=== PATIENT | male | born 1945 | race Caucasian/White ===

== ENCOUNTER 2016-09-25 11:05 | Observation (INO) ==
[2016-09-25] MEDS ORDERED: Aspirin 81 MG TAB.CHEW PO ONE (11:26)
--- NOTE | 2016-09-25 11:28 | Emergency Department Note ---
Disposition Clinical Impression: Chest pain Qualifiers: Chest pain type: unspecified Qualified Code(s): R07.9 - Chest pain, unspecified Disposition: Admitted As Inpatient Condition: Fair Referrals: NO,PCP [Non-Partnered Physician] - Forms: ED Satisfaction Letter Time of Disposition: 15:21 Chest Pain HPI - General Chief Complaint: ED Chest Pain Stated Complaint: chest pain Time Seen by Provider: 09/25/16 11:13 Source: patient, family Limitations: no limitations Vital Signs Reviewed: Yes Nursing Notes Reviewed: Yes - History of Present Illness HPI Narrative: 71-year-old male complaining of exertional chest pain 2 hours prior to arrival, history of CAD, CHF not compliant on lasix, nillotinib therapy with Dr. Scott, patient was actually on his way in to the cancer center today, he walked from the parking lot to the cancer center and got extreme shortness of breath associated with chest pain, he describes pain as 6 out of 10 substernal, radiating to left arm, causing numbness in his left arm. 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 Patient denies history of DVT or pulmonary embolus. Patient denies hemoptysis, fever chills weight loss or productive cough Pt complaint: chest pain Onset (ago): hour(s) (2) Duration: intermittent Onset: during exertion Pain Location: left chest Severity: mild Severity scale (1-10): 5 Quality: tightness, heaviness Pain Radiation: LUE Improves with: nothing Worsens with: nothing Context: other (Hx of CML) Associated symptoms: Reports: dyspnea Treatments prior to arrival chest pain: none - Related Data Home Medications Medication Instructions Recorded Confirmed Aspirin Enteric Coated [Aspirin EC] 81 mg PO DAILY 03/26/15 09/25/16 Cholecalciferol (Vitamin D3) 2,000 unit PO DAILY 03/26/15 09/25/16 [Vitamin D3] Furosemide 40 mg PO DAILY 03/26/15 09/25/16 GlipiZIDE [Glipizide] 10 mg PO DAILY 03/26/15 09/25/16 Lisinopril 20 mg PO DAILY 03/26/15 09/25/16 Metformin [Glucophage] 1,000 mg PO BID 03/26/15 09/25/16 Tramadol HCl 50 mg PO Q6HR PRN 03/26/15 09/25/16 Triamcinolone Acet 0.1% CRM 1 appl TP BID PRN 03/26/15 09/25/16 [Kenalog] Isosorbide MONOnitrate (24 HR) 30 mg PO DAILY 04/23/15 09/25/16 [Imdur] Oxygen 3 ml .ROUTE AD 11/10/15 09/25/16 Nitroglycerin [Nitrostat] 0.4 mg SL AD 09/25/16 09/25/16 Previous Rx's Medication Instructions Recorded Nilotinib HCl [Tasigna] 1 cap PO BID #60 capsule 09/12/16 Allergies Allergy/AdvReac Type Severity Reaction Status Date / Time codeine AdvReac Nausea Verified 09/25/16 11:09 morphine AdvReac Nausea Verified 09/25/16 11:09 All systems ED: reviewed and negative except as stated. Constitutional: Denies: fever, chills Cardiovascular: Reports: as per HPI, chest pain, dyspnea on exertion. Denies: palpitations Respiratory: Denies: cough, dyspnea Gastrointestinal: Denies: abdominal pain, nausea Genitourinary: Denies: urgency, dysuria Musculoskeletal: Denies: back pain, neck pain Integumentary: Denies: rash Neurological: Denies: headache, weakness Psychiatric: Denies: anxiety Endocrine: Denies: fatigue Chest Pain PMH - Past Medical History Medical history: Reports: cancer, cirrhosis, CHF, COPD, coronary artery disease , diabetes, hyperlipidemia, hypertension, myocardial infarction, other Surgical history: Reports: appendectomy, orthopedic, other Psychiatric history: Reports: no psych history - Social History Smoking Status: Former smoker Alcohol use: Reports: none Drug use: Reports: none Physical Exam Constitutional: Elderly male in no acute distress, tachycardic and hypoxic HEENT: NCAT, sclera anicteric, PERRLA bilaterally, normal external ears bilaterally, nasal septum nondeviated, average dentition, MMM Neck: normal inspection, neck is supple, trachea midline Resp: Bilateral bibasilar rales CV: RRR, no m/g/r, +3 bilateral pitting edema. GI: normal inspection, Soft, NTND, BS present Back: normal inspection, no tenderness to palpation Neuro: A&O3, no gross motor or sensory deficits bilaterally Skin: No rashes, skin warm, dry, intact - General Limitations: no limitations General appearance: alert, in no apparent distress Course Course Narrative: 71-year-old male with chest pain exertion walking to parking lot chronically oxygen dependent, chest pain worse with exertion, multiple comorbidities including CHF, COPD, oxygen dependence, likely admission for chest pain workup. - Reevaluation(s) Reevaluation #1: Troponin negative, EKG unremarkable, given hypoxia, tachycardia, CT of chest ordered Reevaluation #2: CT negative for pulmonary embolus, after long discussion with the patient will admit for chest pain workup [facility] accepting. Time: 15:21 Vital Signs Temperature 97.6 F 09/25/16 11:10 Pulse Rate 97 09/25/16 11:10 Respiratory Rate 18 09/25/16 11:10 Blood Pressure 159/70 09/25/16 11:10 O2 Sat by Pulse Oximetry 96 09/25/16 11:10 Temperature 97.6 F 09/25/16 11:10 Pulse Rate 110 09/25/16 15:02 Respiratory Rate 15 09/25/16 15:12 Blood Pressure 126/62 09/25/16 15:12 O2 Sat by Pulse Oximetry 95 09/25/16 15:02 Oxygen Delivery Oxygen Delivery Nasal Cannula Chest Pain - Differential Diagnosis Likely: atypical chest pain - Medical Records Medical records reviewed: Yes I reviewed the patient's medical records. - Lab Data Lab results reviewed: Yes I reviewed the patient's lab results. Result diagrams: 09/25/16 11:34 09/25/16 11:34 Lab Results 09/25/16 09/25/16 09/25/16 Range/Units 11:34 11:34 11:34 WBC 9.4 (4.3-11.1) K/mcL RBC 4.60 (4.19-5.50) M/mcL Hgb 14.2 (12.9-16.9) g/dL Hct 42.2 (37.5-50.1) % MCV 91.7 (83.0-100.0) fL MCH 30.9 (28.0-33.3) pg MCHC 33.6 (31.6-35.5) g/dL RDW 13.9 (11.5-14.5) % Plt Count 157 (140-400) K/mcL MPV 10.3 (9.4-12.4) fL Immature Gran % 0.2 (0-4) % Seg Neutrophils % 68.1 % Lymphocytes % 14.0 % Monocytes % 14.7 % Eosinophils % 2.6 % Basophils % 0.4 % Neutrophils # 6.4 (1.6-8.9) K/mcL Lymphocytes # 1.3 (0.6-4.6) K/mcL Monocytes # 1.4 H (0.0-1.3) K/mcL Eosinophils # 0.2 (0.0-0.6) K/mcL Basophils # 0.0 (0.0-0.2) K/mcL Immature Plt Fraction 5.1 (1.1-6.1) % PT 13.0 H (9.4-12.1) Seconds INR 1.2 APTT 33.6 (26.0-36.0) Seconds Sodium (136-145) mEq/L Potassium (3.5-4.5) mEq/L Chloride (98-109) mEq/L Carbon Dioxide (19-29) mEq/L BUN (8-26) mg/dL Creatinine (0.72-1.25) mg/dL Est GFR ( Amer) (> 60) Est GFR (Non-Af Amer) (> 60) BUN/Creatinine Ratio (6-26) Glucose (70-99) mg/dL Calculated Osmolality (280-300) Calcium (8.6-10.8) mg/dL Troponin I (0-0.03) ng/mL B-Natriuretic Peptide 13 (0-100) pg/mL 09/25/16 09/25/16 Range/Units 11:34 11:34 WBC (4.3-11.1) K/mcL RBC (4.19-5.50) M/mcL Hgb (12.9-16.9) g/dL Hct (37.5-50.1) % MCV (83.0-100.0) fL MCH (28.0-33.3) pg MCHC (31.6-35.5) g/dL RDW (11.5-14.5) % Plt Count (140-400) K/mcL MPV (9.4-12.4) fL Immature Gran % (0-4) % Seg Neutrophils % % Lymphocytes % % Monocytes % % Eosinophils % % Basophils % % Neutrophils # (1.6-8.9) K/mcL Lymphocytes # (0.6-4.6) K/mcL Monocytes # (0.0-1.3) K/mcL Eosinophils # (0.0-0.6) K/mcL Basophils # (0.0-0.2) K/mcL Immature Plt Fraction (1.1-6.1) % PT (9.4-12.1) Seconds INR APTT (26.0-36.0) Seconds Sodium 137 (136-145) mEq/L Potassium 4.1 (3.5-4.5) mEq/L Chloride 105 (98-109) mEq/L Carbon Dioxide 21 (19-29) mEq/L BUN 6 L (8-26) mg/dL Creatinine 0.79 (0.72-1.25) mg/dL Est GFR ( Amer) > 60 (> 60) Est GFR (Non-Af Amer) > 60 (> 60) BUN/Creatinine Ratio 8 (6-26) Glucose 138 H (70-99) mg/dL Calculated Osmolality 284 (280-300) Calcium 9.0 (8.6-10.8) mg/dL Troponin I 0.01 (0-0.03) ng/mL B-Natriuretic Peptide (0-100) pg/mL - Radiology Data Radiology results reviewed: Yes I reviewed the patient's radiology results. Chest X-Ray 09/25/16 11:26 IMPRESSION: 1. No acute cardiopulmonary disease. 2. Stable moderate interstitial pulmonary fibrosis. 3. Stable mild chronic elevation of the right hemidiaphragm. D/ / 09/25/2016 12:07:52 Codey Boo MD / [facility] Interpreting Provider: Codey Boo MD Chest CTA 09/25/16 12:11 IMPRESSION: 1. No evidence of pulmonary embolism. 2. Stable to slight progression of interstitial lung disease with honeycombing versus superimposed emphysematous change. 3. Mild mediastinal lymphadenopathy, unchanged from prior exam. D/ / 09/25/2016 14:00:51 Chano Diaz MD / [email or web address] Interpreting Provider: Chano Diaz MD - EKG Data EKG attestation: Yes I reviewed and interpreted this EKG. EKG shows normal: sinus rhythm Rate: normal (88 bpm ME 162 QRS 145 QTc 422 right bundle branch block seen on previous EKG in October 2015) [place]/QRS: RBBB Interpretation: unchanged when compared to prior tracing (date) (2015) - Core Measures AMI Core Measures Followed: Yes Heart Score - Score History: Moderately Suspicious EKG: Non Specific repolarisation Disturbance Age: Greater than 65 Risk Factors: Equal/Greater than 3 risk factor or history of atherosclerotic disease Troponin: Less than normal limit HEART Score Total: 6 Attestation Statement - Attestation Attestation: I examined this patient and my medical decision-making was reviewed with the MUD BOSS/PA/Advanced Practice Nurse/Resident Physician. I agree with the documented findings, disposition and treatment plan as described except to the extent set forth below. Patient to the emergency department with a chief complaint of Chest pain. States it radiated down his left arm. History of VT in the 90s. No stents. Was sent from his oncologist office. He has a history of leukemia. On exam he is in no distress. Heart regular rhythm with tachycardia and lungs are clear. Plan. Cardiac workup. CT rule out PE as he has hematologic cancer. No PE. Patient will be admitted for further cardiac workup.
[2016-09-25 11:41] LABS: Basophils % 0.4 %; Eosinophils # 0.2 K/mcL (0.0-0.6); Eosinophils % 2.6 %; Hematocrit 42.2 % (37.5-50.1); Hemoglobin 14.2 g/dL (12.9-16.9); Immature Granulocytes % 0.2 % (0-4); Immature Platelets 5.1 % (1.1-6.1); Lymphocytes # 1.3 K/mcL (0.6-4.6); Mean Corpuscular HGB Conc 33.6 g/dL (31.6-35.5); Mean Corpuscular Hemoglobin 30.9 pg (28.0-33.3); Mean Corpuscular Volume 91.7 fL (83.0-100.0); Mean Platelet Volume 10.3 fL (9.4-12.4); Monocytes # 1.4 K/mcL (0.0-1.3); Monocytes % 14.7 %; Neutrophils # 6.4 K/mcL (1.6-8.9); Platelet Count 157 K/mcL (140-400); Red Cell Distribution Width 13.9 % (11.5-14.5); Segmented Neutrophils % 68.1 %
[2016-09-25 11:45] LABS: INR 1.2
[2016-09-25 11:48] LABS: Activated Partial Thrombo Time 33.6 Seconds (26.0-36.0)
[2016-09-25 11:53] LABS: BUN/Creatinine Ratio 8 (6-26); Blood Urea Nitrogen 6 mg/dL (8-26); Carbon Dioxide 21 mEq/L (19-29); Chloride 105 mEq/L (98-109); Glucose 138 mg/dL (70-99); Osmolality,Calculated 284 (280-300); Potassium 4.1 mEq/L (3.5-4.5); Sodium 137 mEq/L (136-145); eGFR For African Americans > 60 (> 60); eGFR For Non-African Americans > 60 (> 60)
[2016-09-25] MEDS ORDERED: 0.9 % Sodium Chloride 1,000 ML IV ONE (12:09)
[2016-09-25] MEDS ORDERED: 0.9 % Sodium Chloride 500 ML IV ONE (12:10)
[2016-09-25] MEDS ORDERED: Nitroglycerin 0.4 MG TAB.SUBL SL ONE (14:58)
[2016-09-25] MEDS ORDERED: Ondansetron 4 MG/2 ML VIAL IVP PRN (17:04)
[2016-09-25] MEDS ORDERED: *HR* Morphine 2 MG/ML SYRINGE IVP PRN (17:04)
[2016-09-25] MEDS ORDERED: Naloxone 0.4 MG/ML INJ IVP PRN (17:04)
[2016-09-25] MEDS ORDERED: Triamcinolone Acet 0.1% CRM 15 GM TUBE TP PRN (17:11)
[2016-09-25] MEDS ORDERED: traMADol 50 MG TABLET PO PRN (17:11)
[2016-09-25] MEDS ORDERED: OXYGEN SCH (17:15)
[2016-09-25] MEDS ORDERED: Patient Taking Own Medication 1 EACH PO SCH (17:46)
[2016-09-25] MEDS ORDERED: NILOTINIB HCL 150 MG PO SCH ×2 (18:00→21:00)
[2016-09-25] MEDS ORDERED: Furosemide 40 MG/4 ML VIAL IVP ONE (18:07)
--- NOTE | 2016-09-25 18:42 | Internal Med History&Physical ---
Date of Encounter: 09/25/16 Time of Encounter: 18:40 Assessment and Plan (1) Chest pain Current visit: No Status: Acute Associated with shortness of breath and developed upon exertion. Resolved with nitro. Patient thinks this is secondary to volume overload, will give dose of IV lasix and see if it improves symptoms. - Trend troponins - IV lasix - Stress test in AM - Keep patient chest pain free Qualifiers: Chest pain type: other chest pain Qualified Code(s): R07.89 - Other chest pain (2) Type 2 diabetes mellitus Current visit: No Status: Acute Qualifiers: Diabetes mellitus complication status: with unspecified complications Diabetes mellitus correction insulin use: without correction use Qualified Code( s): E11.8 - Type 2 diabetes mellitus with unspecified complications (3) Congestive heart failure Current visit: No Status: Acute Qualifiers: Congestive heart failure type: unspecified congestive heart failure type Congestive heart failure chronicity: chronic Qualified Code(s): I50.9 - Heart failure, unspecified (4) CML (chronic myelocytic leukemia) Current visit: No Status: Chronic Internal Medicine - H&P: HPI Chief complaint: Chest pain, shortness of breath Admitted From: Emergency Dept Plans for Post Hospital Care: Home History of present illness: Mr. Oneal is a 71 year old male with history of (diastolic) CHF, CML, pulmonary fibrosis, who presented to the ER this afternoon with chest pain and shortness of breath which developed while he was ambulating into the [facility] oncology clinic. He developed severe shortness of breath and substernal chest pain while ambulating, the pain radiated to the left arm, rated at 6/10. He states that he gets similar chest pain when he has been noncompliant with his lasix, and he admits to not taking it as often as prescribed. He has gained 8 pounds over the past few weeks and has noticed increased lower extremity edema. He was given nitro SL in the ER with resolution of his pain. He occasionally will take a SL nitro for similar chest pain, most recently several months ago. His last stress test was 03/2015. [facility] in 2010 showed minimal coronary artery disease. Past Med Surg Social Fam HX - Past Medical History Medical history: cancer (CML, follows with cancer center), cirrhosis, CHF, COPD , coronary artery disease, diabetes, hyperlipidemia, hypertension, myocardial infarction, other Psychiatric history: no psych history - Past Surgical History Surgical History: appendectomy, orthopedic, other - Social History Smoking Status: Former smoker Smokeless Tobacco Status: No Alcohol use: none Drug use: none Additional social history: Lives at home with - Family History Father Adopted: No Family Member Ethnicity: Non- Hx Family Cardiac Disorders: No Hx Family Respiratory Disorders: No Hx Family Cancer: Yes (lung cancer) Hx Family GI Disorders: No Hx Family Endocrine Disorder: No Hx Family Neuromuscular Disorders: No Hx Family Neurologic Disorders: No Hx Family HEENT Disorders: No Hx Family Autoimmune Disorders: No Internal Medicine - H&P: Meds Aspirin Enteric Coated [Aspirin EC] 81 mg PO DAILY 03/26/15 [History] Cholecalciferol (Vitamin D3) [Vitamin D3] 2,000 unit PO DAILY 03/26/15 [History] Furosemide 40 mg PO DAILY 03/26/15 [History] GlipiZIDE [Glipizide] 10 mg PO DAILY 03/26/15 [History] Lisinopril 20 mg PO DAILY 03/26/15 [History] Metformin [Glucophage] 1,000 mg PO BID 03/26/15 [History] Tramadol HCl 50 mg PO Q6HR PRN 03/26/15 [History] Triamcinolone Acet 0.1% CRM [Kenalog] 1 appl TP BID PRN 03/26/15 [History] Isosorbide MONOnitrate (24 HR) [Imdur] 30 mg PO DAILY 04/23/15 [History] Oxygen 3 ml .ROUTE AD 11/10/15 [History] Nilotinib HCl [Tasigna] 300 mg PO DAILY 09/25/16 [History] Nitroglycerin [Nitrostat] 0.4 mg SL AD PRN 09/25/16 [History] [place]-3/Dha/Epa/Fish Oil [Fish Oil 1,000 mg Softgel] 1,000 mg PO DAILY 09/25/16 [History] Allergies codeine Adverse Reaction (Verified 09/25/16 11:09) Nausea morphine Adverse Reaction (Verified 09/25/16 11:09) Nausea All Systems PM: A 10-system review of systems was performed and is negative for pertinent findings except as documented above in the HPI. - Constitutional Vitals: Temp Pulse Resp BP Pulse Ox 97.3 F L 88 18 113/57 96 09/25/16 15:36 09/25/16 15:36 09/25/16 15:36 09/25/16 15:36 09/25/16 18:02 General appearance: Present: A&O X 3 Exam: Patient in no acute distress, sitting on edge of bed - Head Head exam: Present: atraumatic - Eye Eye exam: Present: EOMI, sclera anicteric - ENT ENT exam: Present: mucous membranes moist - Neck Neck exam general surgery: Present: supple - Respiratory Additional comments: Crackles in bilateral bases - Cardiovascular Cardiovascular exam: Present: RRR. Absent: diastolic murmur, gallop, rubs, systolic murmur - GI/Abdominal GI/Abdominal exam: Present: normal bowel sounds, soft. Absent: distended, tenderness - Extremities Exam Extremities exam: Present: pedal edema (2-3+ edema bilateral lower extremities) - Neurological Exam Neurological exam: Present: no focal deficits - Skin Skin exam: Absent: rash Internal Med - H&P Results - Labs CBC & Chem 7: 09/25/16 11:34 09/25/16 11:34 Labs: Cardiac Enzymes 09/25/16 Range/Units 17:41 Troponin I 0.00 (0-0.03) ng/mL
[2016-09-26 00:43] LABS: BUN/Creatinine Ratio 8 (6-26); Blood Urea Nitrogen 6 mg/dL (8-26); Calcium 9.1 mg/dL (8.6-10.8); Carbon Dioxide 26 mEq/L (19-29); Chloride 103 mEq/L (98-109); Chol/HDL Ratio 3.4 (0-4.9); Cholesterol 160 mg/dL (< 200); Glucose 124 mg/dL (70-99); HDL Cholesterol 47 mg/dL (40-59); LDL Cholesterol,Calculated 88 mg/dL (0-99); Osmolality,Calculated 283 (280-300); Potassium 3.9 mEq/L (3.5-4.5); Sodium 137 mEq/L (136-145); Triglycerides 127 mg/dL (< 150); eGFR For African Americans > 60 (> 60); eGFR For Non-African Americans > 60 (> 60)
[2016-09-26 00:55] LABS: Basophils % 0.4 %; Eosinophils # 0.2 K/mcL (0.0-0.6); Eosinophils % 2.9 %; Hematocrit 41.9 % (37.5-50.1); Hemoglobin 14.2 g/dL (12.9-16.9); Immature Granulocytes % 0.3 % (0-4); Lymphocytes # 1.3 K/mcL (0.6-4.6); Lymphocytes % 19.6 %; Mean Corpuscular HGB Conc 33.9 g/dL (31.6-35.5); Mean Corpuscular Volume 91.5 fL (83.0-100.0); Monocytes % 13.9 %; Neutrophils # 4.3 K/mcL (1.6-8.9); Platelet Count 153 K/mcL (140-400); Red Blood Count 4.58 M/mcL (4.19-5.50); Red Cell Distribution Width 13.9 % (11.5-14.5); Segmented Neutrophils % 62.9 %
[2016-09-26] MEDS ORDERED: Regadenoson 0.4 MG/5 ML SYRINGE IVP ONE ×2 (06:16→12:29)
--- NOTE | 2016-09-26 12:21 | Electrocardiograph Report ---
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
[2016-09-26] MEDS: Aspirin Enteric Coated 81 MG Tablet PO SCH (16:01)
[2016-09-26] MEDS: Furosemide 40 MG TABLET PO SCH (16:01)
[2016-09-26] MEDS: Lisinopril 20 MG TABLET PO SCH (16:01)
[2016-09-26] MEDS: Isosorbide MONOnitrate (24 HR) 30 MG TAB.ER.24H PO SCH (16:01)
[2016-09-26] MEDS: NILOTINIB HCL 150 MG PO SCH (16:02)
--- NOTE | 2016-09-26 17:18 | Internal Med Progress Note ---
Date of Encounter: 09/26/16 Time of Encounter: 14:30 - Assessment and plan (1) Chest pain Current Visit: No Status: Acute Assessment and plan: Patient currently denies chest pain but continues to endorse shortness of breath above his norm. Diuresing well. He is tolerating a regular diet. Troponin negative 4. Second part of his stress test is tomorrow morning, possible discharge afterwards pending clinical outcomes. Chest x-ray negative. Chest CTA revealing stable/slightly worsened interstitial lung disease with honeycombing, follow-up outpatient with [facility]. ITS Impressions Chest X-Ray 09/25/16 11:26 IMPRESSION: 1. No acute cardiopulmonary disease. 2. Stable moderate interstitial pulmonary fibrosis. 3. Stable mild chronic elevation of the right hemidiaphragm. D/ / 09/25/2016 12:07:52 Codey Boo MD / [email or web address] Interpreting Provider: Codey Boo MD Chest CTA 09/25/16 12:11 IMPRESSION: 1. No evidence of pulmonary embolism. 2. Stable to slight progression of interstitial lung disease with honeycombing versus superimposed emphysematous change. 3. Mild mediastinal lymphadenopathy, unchanged from prior exam. D/ / 09/25/2016 14:00:51 Chano Diaz MD / [facility] Interpreting Provider: Chano Diaz MD Qualifiers: Chest pain type: other chest pain Qualified Code(s): R07.89 - Other chest pain (2) Acute and chronic respiratory failure Current Visit: Yes Status: Chronic Assessment and plan: No increased need for oxygenation, currently on 2 L per nasal cannula (3) Coronary artery disease Current Visit: No Status: Chronic (4) Type 2 diabetes mellitus Current Visit: No Status: Chronic Assessment and plan: Moderately controlled with A1c of 7.6%, continue sliding scale while admitted (5) COPD (chronic obstructive pulmonary disease) Current Visit: No Status: Chronic Assessment and plan: No acute exacerbation, presentation consistent with CHF exacerbation Qualifiers: COPD type: emphysema Emphysema type: other Qualified Code(s): J43.8 - Other emphysema (6) Congestive heart failure Current Visit: No Status: Acute Assessment and plan: Acute on chronic diastolic heart failure. Diuresing with furosemide. Patient currently has 2+ pitting edema bilaterally which he states is now normal for him. Patient stating he is not compliant with his Lasix at home but promises to be compliant after this admission. (7) Obstructive sleep apnea Current Visit: No Status: Chronic Assessment and plan: CPAP at bedtime ordered (8) CML (chronic myelocytic leukemia) Current Visit: No Status: Chronic (9) Morbid obesity with BMI of 45.0-49.9, adult Current Visit: Yes Status: Chronic - Subjective Interval history: Patient seen and examined. On examination, patient resting in bed watching television and conversing with his . Patient denies pain at this time but endorses shortness of breath above his norm. He states the swelling in his legs is now back down to normal. - Constitutional Vitals: Temp Pulse Resp BP Pulse Ox 97.7 F 90 17 121/64 97 09/26/16 15:41 09/26/16 15:41 09/26/16 15:41 09/26/16 15:41 09/26/16 15:41 General appearance: Present: A&O X 3, morbidly obese, pleasant, no acute distress, answers questions appropriately - Head Head exam: Present: atraumatic, normocephalic - Eye Eye exam: Present: PERRL, conjuntiva pink, sclera anicteric Pupils: Present: PERRL - Neck Neck exam general surgery: Present: supple, trachea midline. Absent: lymphadenopathy - Respiratory Respiratory exam: Present: decreased breath sounds. Absent: accessory muscle use, rales, respiratory distress, rhonchi, wheezes - Cardiovascular Cardiovascular exam: Present: RRR, +S1, +S2. Absent: diastolic murmur, gallop, rubs, systolic murmur - GI/Abdominal GI/Abdominal exam: Present: distended, normal bowel sounds, soft, no peritoneal signs. Absent: tenderness - Extremities Exam Extremities exam: Present: pedal edema (2+ bilaterally), warm, radial pulses palpable and symetrical. Absent: calf tenderness, cyanotic - Neurological Exam Neurological exam: Present: alert, CN II-XII intact, oriented X3, no focal deficits, strengths equal and symetr throughout. Absent: pronater drift, facial droop, speech deficit - Skin Skin exam: Present: dry, intact, normal color, warm Internal Medicine: Result - Labs CBC & Chem 7: 09/26/16 00:08 09/26/16 00:08 Labs: Short CBC 09/26/16 Range/Units 00:08 WBC 6.8 (4.3-11.1) K/mcL Hgb 14.2 (12.9-16.9) g/dL Hct 41.9 (37.5-50.1) % Plt Count 153 (140-400) K/mcL Neutrophils # 4.3 (1.6-8.9) K/mcL BMP 09/26/16 00:08 Sodium 137 Potassium 3.9 Chloride 103 Carbon Dioxide 26 BUN 6 L Creatinine 0.78 Glucose 124 H Calcium 9.1 Cardiac Enzymes 09/25/16 09/26/16 09/26/16 Range/Units 17:41 00:08 04:56 Troponin I 0.00 0.00 0.01 (0-0.03) ng/mL - ABG Interpretation ABG results: PT/INR, D-dimer PT 13.0 Seconds (9.4-12.1) H 09/25/16 11:34 Consult Discharge Plan - Plan Referrals: Vicente Pederson DO [Primary Care Provider] -
[2016-09-27] MEDS: Furosemide 40 MG TABLET PO SCH (09:18)
[2016-09-27] MEDS: Lisinopril 20 MG TABLET PO SCH (09:18)
[2016-09-27] MEDS: Aspirin Enteric Coated 81 MG Tablet PO SCH (09:18)
[2016-09-27] MEDS: Isosorbide MONOnitrate (24 HR) 30 MG TAB.ER.24H PO SCH (09:18)
[2016-09-27] MEDS: NILOTINIB HCL 150 MG PO SCH (10:40)
--- NOTE | 2016-09-27 10:59 | Nuclear Medicine Stress Report ---
Regadenoson Nuclear 2 day Name: Chilango Oneal Date of Study: 09/26/2016 Date: 1945 Ht: 70.0 in Medical Record#: [id number] Age: 71 Wt: 314.0 lb Gender: Male Order #: [id number] Location: [facility] Room: [facility] Supervising Provider: Toñito Nova CNP Reading Physician: Gallo Hayward DO, JOSH ALBRIGHT FASNC Ordering Physician: Ignacia Brewer CNP Primary Care Physician: Vicente Pederson DO Stress Technologist: Nano Dumas, STRAIGHT PIN MAKING MACHINE OPERATOR, CPFT Adult Parole Officer: Sherif John Indications: Shortness of breath, Chest Pain, Coronary Artery Disease Impression: Pharmacologic stress ECG is non diagnostic for ischemia due to baseline non-specific ST and T changes. Gated EF = 74%. Two defects: 1. Small sized, moderate intensity, partially reversible apex and apical lateral defect. The presence of a small area of ischemia cannot be excluded. Clinical correlation suggested. 2. Small sized, moderate intensity, fixed basal inferolateral defect suggestive of artifact. History: Hypertension Prior PCI Stress Test Summary: Stress Test Type: Pharmacologic Regadenoson 0.4mg/5ml given IV Baseline Information: Initial Heart Rate: 86 Blood Pressure: 108/56 Stress Information: Test Terminated Due to (primary): As per protocol Maximum Blood Pressure: 122/68 Maximum Heart Rate: 104 Percent Maximum Heart Rate Achieved: 69 Double Product: [id number] METS Reached: 1 Symptoms: Shortness of breath Nuclear Summary: SPECT myocardial perfusion imaging using Tc99m Sestamibi given intravenously was performed at rest and following cardiac stress testing. The resting images were obtained following initial dose of 34.1 mCi. Following stress an additional dose of 35.4 mCi was given at peak exercise or 30 seconds post regadenoson infusion. Medication Given: Time Medication Dose Units Route Findings: Stress Note * Resting ECG demonstrated normal sinus rhythm with a RBBB and ST-T changes. * No baseline arrhythmias were noted. * Pharmacologic stress ECG is non diagnostic for ischemia due to baseline non-specific ST and T changes. * Patient had no chest pain during stress. Hemodynamic responses * Normal hemodynamic responses to pharmacologic stress. Study Quality * Study quality is average. Gated EF % * Gated EF = 74%. Left Ventricle * The left ventricle is not dilated. * LVEDV = 107 mL. Apical Perfusion Rest * The apex/apical lateral segments show a mild to moderate reduction in perfusion. Apical Perfusion Stress * The apex/apical lateral segments show a moderate reduction in perfusion. Inferior Perfusion Rest * The basal inferolateral segment shows a moderate reduction in perfusion. Inferior Perfusion Stress * The basal inferolateral segment shows a moderate reduction in perfusion. TID * No evidence of transient ischemic dilatation. TID ratio * TID ratio = 0.86. Lung Uptake * There is no evidence of increase lung uptake. Updated by Gallo Hayward DO, FACMaira, JOSH, KATLYN on 09/27/2016 10:51:12 AM electronically signed on 09/27/2016 10:53:34 AM with status of Final
--- NOTE | 2016-09-27 12:52 | Cardiology Consult Note ---
Date of Encounter: 09/27/16 Time of Encounter: 12:05 Assessment and Plan (1) Abnormal nuclear stress test Current Visit: Yes Status: Acute Pharm stress with gated EF 74%, EKG nondiagnostic for ischemia, small moderate intensity partially reversible apex and apical lateral defect Troponins negative EKG with NSR and RBBB unchanged since 10/27/15 24 hour telemetry avg HR 83, min HR 61, max HR 108, longest pause 2s C 05/26/11 LVEF 60% with normal LV function, 10% discrete stenosis left main, 20% discrete stenosis proximal LAD, 20% discrete stenosis left circumflex, 20% stenosis in right proximal ECHO 10/23/15 LVEF 65-70%, normal LV size, thickness, function, mild LV diastolic dysfunction Plan: Given small partially reversible ischemia, will continue with medical management Add Atorvastatin 40mg Increase Imdur to 60mg daily Continue ASA 81mg Follow up with Dr. Schafer Will sign off for now. Please reconsult as needed. Thank you for allowing us to participate in the care of your patient. (2) Chest pain Current Visit: Yes Status: Resolved CTA chest negative for pulmonary embolus, stable to slight progression of interstitial lung disease honeycombing versus emphysematous change, mild mediastinal LAD unchanged from prior CXR with no acute cardiopulmonary disease, stable interstitial pulmonary fibrosis, stable mild chronic elevation right hemidiaphragm Chest pain may be due to ischemia given positive stress Troponins are negative EKG nondiagnstic Continue plan as above Qualifiers: Chest pain type: unspecified Qualified Code(s): R07.9 - Chest pain, unspecified (3) Hypertension Current Visit: Yes Status: Chronic Stable Continue Lisinopril Qualifiers: Hypertension type: essential hypertension Qualified Code(s): I10 - Essential (primary) hypertension (4) Coronary artery disease Current Visit: No Status: Chronic History of [place], no history of stents Qualifiers: Coronary Disease-Associated Artery/Lesion type: [place] artery [place] vs. transplanted heart: [place] heart Associated angina: with stable angina Qualified Code(s): I25.118 - Atherosclerotic heart disease of [place] coronary artery with other forms of angina pectoris (5) Type 2 diabetes mellitus Current Visit: No Status: Chronic Uncontrolled at this time Management per primary team Qualifiers: Diabetes mellitus complication status: with unspecified complications Diabetes mellitus penitentiary insulin use: without penitentiary use Qualified Code( s): E11.8 - Type 2 diabetes mellitus with unspecified complications Discussion w patient/family: The assessment and plan as outlined above was discussed with the patient and/or family members who expressed understanding and agreement. All questions were answered. Thank you for involving us in the care of your patient. Please call with any questions. History of Present Illness Consult date: 09/27/16 Requesting physician: Abi Garcia Consult reason: Abnormal pharm stress 2 day Chief complaint: Chest pain History of present illness: Mr. Oneal is a 71 year old male who presented to [facility] ED 2 days ago with complaints of acute onset chest pain. Onset of pain occurred while patient was walking in to his chemotherapy session at the cancer clinic. Patient was urged by oncologist to go to ED. Patient states pain was 5-6 out of 10 and described as tightness or squeezing sensation. Pain was located in left chest and radiated down left arm. Left arm was numb, while there was pain in the left hand. Patient denied increased dyspnea, diaphoresis, nausea, or vomiting at time of pain. Pain was not relieved by rest, but was relieved by nitroglycerin in ED. Past Med Surg Social Fam HX - Past Medical History Medical history: cancer (CML, follows with cancer center), cirrhosis, CHF, COPD , coronary artery disease, diabetes, hypertension, myocardial infarction, other Psychiatric history: no psych history - Past Surgical History Surgical History: appendectomy, orthopedic, other - Social History Smoking Status: Former smoker Smokeless Tobacco Status: No Alcohol use: none Drug use: none - Family History Father Adopted: No Family Member Ethnicity: Non- Hx Family Cardiac Disorders: No Hx Family Respiratory Disorders: No Hx Family Cancer: Yes (lung cancer) Hx Family GI Disorders: No Hx Family Endocrine Disorder: No Hx Family Neuromuscular Disorders: No Hx Family Neurologic Disorders: No Hx Family HEENT Disorders: No Hx Family Autoimmune Disorders: No Medications and Allergies Aspirin Enteric Coated [Aspirin EC] 81 mg PO DAILY 03/26/15 [History] Cholecalciferol (Vitamin D3) [Vitamin D3] 2,000 unit PO DAILY 03/26/15 [History] Furosemide 40 mg PO DAILY 03/26/15 [History] GlipiZIDE [Glipizide] 10 mg PO DAILY 03/26/15 [History] Lisinopril 20 mg PO DAILY 03/26/15 [History] Metformin [Glucophage] 1,000 mg PO BID 03/26/15 [History] Tramadol HCl 50 mg PO Q6HR PRN 03/26/15 [History] Triamcinolone Acet 0.1% CRM [Kenalog] 1 appl TP BID PRN 03/26/15 [History] Isosorbide MONOnitrate (24 HR) [Imdur] 30 mg PO DAILY 04/23/15 [History] Oxygen 3 ml .ROUTE AD 11/10/15 [History] Nilotinib HCl [Tasigna] 300 mg PO DAILY 09/25/16 [History] Nitroglycerin [Nitrostat] 0.4 mg SL AD PRN 09/25/16 [History] [place]-3/Dha/Epa/Fish Oil [Fish Oil 1,000 mg Softgel] 1,000 mg PO DAILY 09/25/16 [History] Allergies codeine Adverse Reaction (Verified 09/25/16 11:09) Nausea morphine Adverse Reaction (Verified 09/25/16 11:09) Nausea All Systems Review: A 10-system review of systems was performed and is negative for pertinent findings except as documented above in the HPI. Physical Examination Vital Signs, Last 4 Hours Temp Pulse Resp BP Pulse Ox 09/27/16 11:07 97.4 F L 84 16 109/50 96 General: Conversant, No Apparent Distress, Other (morbidly obese) HEENT: Atraumatic, Normocephaly, Mucus Membranes Moist Neck: No JVD, Normal carotid pulses Cardiac: Reg Rate and Rhythm, Normal S1 and S2, No Murmur Lungs: Other (Bilateral coarse crackles to lower lobes bilaterally, diminshed upper lung sounds) Neuro: Alert and responsive, No focal deficits noted Abdomen: Soft, Non-Tender Skin: No rashes noted on visualized skin Musculoskeletal: No Chest Wall Tenderness Extremities: No Clubbing, No Cyanosis, No Edema, Normal Pulses Results 09/26/16 00:08 09/26/16 00:08 - Imaging and Cardiology Chest Xray: report reviewed, image reviewed Stress Test: report reviewed Cardiac cath: report reviewed Other Results: CT chest report reviewed, image reviewed - EKG Interpretation EKG results cardiology: personally reviewed, normal ECG, right bundle branch block Consult Discharge Plan - Plan Referrals: Vicente Pederson DO [Primary Care Provider] -
[2016-09-27 14:32] VITALS: BP 119/65
--- NOTE | 2016-09-27 16:03 | Discharge Summary ---
Date of Encounter: 09/27/16 Time of Encounter: 15:30 - Discharge Diagnosis (1) Chest pain Priority: Primary Status: Resolved Comments: Patient denied chest pain throughout this admission. Troponin negative 4. Stress test was mildly abnormal and cardiology was brought on board who elected to proceed with medical management with an increase in anterior and addition of statin to his regimen. Follow up outpatient. Qualifiers: Chest pain type: other chest pain Qualified Code(s): R07.89 - Other chest pain (2) Acute and chronic respiratory failure Priority: Secondary Status: Chronic Comments: No increased need for oxygenation, remained on 2 L per nasal cannula (3) Coronary artery disease Priority: Secondary Status: Chronic (4) Type 2 diabetes mellitus Priority: Secondary Status: Chronic Comments: Moderately controlled with A1c of 7.6%, recommended continued follow-up outpatient (5) COPD (chronic obstructive pulmonary disease) Priority: Secondary Status: Chronic Comments: No acute exacerbation. Qualifiers: COPD type: emphysema Emphysema type: other Qualified Code(s): J43.8 - Other emphysema (6) Congestive heart failure Priority: Primary Status: Acute Comments: Acute on chronic diastolic heart failure. Successfully diuresed with furosemide. Patient continued with 2+ pitting edema bilaterally which he states is normal for him. Patient denies shortness of breath above his normal day of discharge. Of note, patient readily endorses noncompliance with his Lasix at home but states he promises to be compliant after this admission. (7) Obstructive sleep apnea Priority: Secondary Status: Chronic (8) CML (chronic myelocytic leukemia) Priority: Secondary Status: Chronic (9) Morbid obesity with BMI of 45.0-49.9, adult Priority: Secondary Status: Chronic - Discharge Medications Prescriptions: Atorvastatin [Lipitor] 40 mg PO HS #30 tablet Isosorbide MONOnitrate (24 HR) [Imdur] 60 mg PO DAILY #30 tab.er.24h Home Medications: Aspirin Enteric Coated [Aspirin EC] 81 mg PO DAILY 03/26/15 [History] Cholecalciferol (Vitamin D3) [Vitamin D3] 2,000 unit PO DAILY 03/26/15 [History] Furosemide 40 mg PO DAILY 03/26/15 [History] GlipiZIDE [Glipizide] 10 mg PO DAILY 03/26/15 [History] Lisinopril 20 mg PO DAILY 03/26/15 [History] Metformin [Glucophage] 1,000 mg PO BID 03/26/15 [History] Tramadol HCl 50 mg PO Q6HR PRN 03/26/15 [History] Triamcinolone Acet 0.1% CRM [Kenalog] 1 appl TP BID PRN 03/26/15 [History] Oxygen 3 ml .ROUTE AD 11/10/15 [History] Nilotinib HCl [Tasigna] 300 mg PO DAILY 09/25/16 [History] Nitroglycerin [Nitrostat] 0.4 mg SL AD PRN 09/25/16 [History] [place]-3/Dha/Epa/Fish Oil [Fish Oil 1,000 mg Softgel] 1,000 mg PO DAILY 09/25/16 [History] Atorvastatin [Lipitor] 40 mg PO HS #30 tablet 09/27/16 [Rx] Isosorbide MONOnitrate (24 HR) [Imdur] 60 mg PO DAILY #30 tab.er.24h 09/27/16 [ Rx] Allergies/Adverse Reactions: Allergies codeine Adverse Reaction (Verified 09/25/16 11:09) Nausea morphine Adverse Reaction (Verified 09/25/16 11:09) Nausea Procedures/tests Complete & Pending: Procedures Performed prior 72 hours Category Date Time Status NM magali perf SPECT multi [NM] Routine Exams 09/25/16 21:37 Taken SP pharm nuclear stress Routine Y 09/26/16 07:50 Completed Date of admission: 09/25/16 15:29 Primary care physician: Vicente Pederson DO Consults: 09/27/16 11:20 Consult to Cardiology [CONS] Routine Comment: Consulting Provider: Cardiology [facility] Reason for Consult: abnl stress; please eval and advise Time Notified: 11:20 Call Completed: Yes Discharging clinician: Abi Garcia Anticipated date of discharge: 09/27/16 - Patient Status Disposition: Home, Self-Care Condition: Fair Functional capacity at discharge: independent ambulation Overall status at discharge: patient is back to baseline - Discharge Instructions Follow Up With: Vicente Pederson DO [Primary Care Provider] - [facility] [Provider Group] Additional Instructions: Follow-up with primary care provider within one to 2 weeks, follow-up with cardiology in 2-3 weeks - Diet and Activity Activity: increase activity as tolerated, wear oxygen at all times Diet: diabetic diet, low fat, low cholesterol, low salt diet Hospital course: Mr. Oneal is a 71 year old male with past medical history of diastolic heart failure Lasix, CML, pulmonary fibrosis, COPD on oxygen at home, diabetes, hyperlipidemia, hypertension, former tobacco abuse, morbid obesity. Patient presented to the emergency department chief complaint chest pain and shortness of breath developed what he was ambulating to his oncology appointment here at [facility]. Patient stating he developed severe shortness of breath substernally located chest pain with ambulation that radiated to his left arm and states he has had episodes similar to this in the past when he is noncompliant with his Lasix. Patient also endorsing an 8 pound weight gain over the past few weeks and increased lower extremity edema. Patient was given sublingual nitroglycerin in the emergency department with resolution of his pain. Workup in the emergency department unremarkable. Chest x-ray negative. Chest CTA revealing stable/slightly worsened interstitial lung disease with honeycombing, follow-up outpatient with load mixer. Patient was admitted to the hospitalist service for further evaluation and management. Patient was diuresed over the course of his 3 day admission and he denied shortness of breath above his normal deep discharge in his lower extremity edema had resolved back down to his baseline. Troponins negative 4. He had a two-part stress test which was mildly abnormal so cardiology was on board. Cardiology elected to continue with medical management and added a statin to his regimen and increased his Imdur. Patient denied chest pain throughout this admission. He was discharged home in stable condition with close outpatient follow-up recommended. ITS Impressions Chest X-Ray 09/25/16 11:26 IMPRESSION: 1. No acute cardiopulmonary disease. 2. Stable moderate interstitial pulmonary fibrosis. 3. Stable mild chronic elevation of the right hemidiaphragm. D/ / 09/25/2016 12:07:52 Codey Boo MD / samra Interpreting Provider: Codey Boo MD Chest CTA 09/25/16 12:11 IMPRESSION: 1. No evidence of pulmonary embolism. 2. Stable to slight progression of interstitial lung disease with honeycombing versus superimposed emphysematous change. 3. Mild mediastinal lymphadenopathy, unchanged from prior exam. D/ / 09/25/2016 14:00:51 Chano Diaz MD / annmarie Interpreting Provider: Chano Diaz MD Nuclear stress test impression: Pharmacologic stress ECG is nondiagnostic for ischemia due to baseline nonspecific ST and T changes. Gated ejection fraction equals 74%. 2 defects: Small sized, moderate intensity, partially reversible apex and apical lateral defect. The presence of a small area of ischemia cannot be excluded. Clinical correlation is suggested. Small sized, moderate intensity, fixed basal inferolateral defect suggestive of artifact. - Time Spent with Patient Total time spent providing and/or coordinating discharge services: - Constitutional Vitals: Temp Pulse Resp BP Pulse Ox 97.8 F 81 14 119/65 98 09/27/16 14:27 09/27/16 14:27 09/27/16 14:27 09/27/16 14:27 09/27/16 14:27 General appearance: Present: A&O X 3, morbidly obese, pleasant, no acute distress, answers questions appropriately - Head Head exam: Present: atraumatic, normocephalic - Eye Eye exam: Present: PERRL, conjuntiva pink, sclera anicteric Pupils: Present: PERRL - Neck Neck exam general surgery: Present: supple, trachea midline. Absent: lymphadenopathy - Respiratory Respiratory exam: Present: decreased breath sounds. Absent: accessory muscle use, rales, respiratory distress, rhonchi, wheezes - Cardiovascular Cardiovascular exam: Present: RRR, +S1, +S2. Absent: diastolic murmur, gallop, rubs, systolic murmur - GI/Abdominal GI/Abdominal exam: Present: distended, normal bowel sounds, soft, no peritoneal signs. Absent: tenderness - Extremities Exam Extremities exam: Present: pedal edema (2+- baseline), warm, radial pulses palpable and symetrical. Absent: calf tenderness, cyanotic - Neurological Exam Neurological exam: Present: alert, CN II-XII intact, normal gait, oriented X3, no focal deficits, strengths equal and symetr throughout. Absent: pronater drift, facial droop, speech deficit - Skin Skin exam: Present: dry, intact, normal color, warm
[2016-09-28] MEDS ORDERED: Isosorbide MONOnitrate (24 HR) 60 MG TAB.ER.24H PO SCH (09:00)
== END 2016-09-27 16:39 | disposition home or self-care (01) ==
LOC: 3BNU 11:05 → EMEROO 11:05 → 3BNU 13:15 → SUATTDRO 15:29
PROVIDERS: ADMIT Internal Medicine; ATTEND Nurse Practitioner Family

== ENCOUNTER 2017-12-06 15:05 | Observation (INO) ==
--- NOTE | 2017-12-06 15:42 | Emergency Department Note ---
Disposition Clinical Impression: Interstitial lung disease, Neck pain Chest pain Qualifiers: Chest pain type: unspecified Qualified Code(s): R07.9 - Chest pain, unspecified Disposition: Admitted As Inpatient Condition: Fair Referrals: Vicente Pederson DO [Primary Care Provider] - Forms: ED Satisfaction Letter Time of Disposition: 20:29 General Adult HPI - General Chief complaint: ED Chest Pain Stated complaint: chest pain Source: patient Limitations: no limitations Nursing Notes Reviewed: Yes Vital Signs Reviewed: Yes - History of Present Illness HPI Narrative: 72-year-old male presents emergency department with concern for chest pain. Patient also has pain in the right side of his neck and radiates down to the right side of his arm with some numbness and tingling of the right upper extremity as well as shortness of breath. Patient states he has never felt like this before. Patient states he was sent here for ultrasound of his carotid arteries. Patient denies any fevers or chills. Denies any unilateral leg swelling. Denies history of blood clots but mother had blood clots in the past. Pain Scale: 8 - Related Data Home Medications Medication Instructions Recorded Confirmed Aspirin Enteric Coated [Aspirin EC] 81 mg PO DAILY 03/26/15 12/06/17 Cholecalciferol (Vitamin D3) 2,000 unit PO DAILY 03/26/15 12/06/17 [Vitamin D3] Furosemide 40 mg PO DAILY PRN 03/26/15 12/06/17 Metformin [Glucophage] 1,000 mg PO DAILY 03/26/15 12/06/17 Tramadol HCl 50 mg PO Q6HR PRN 03/26/15 12/06/17 Triamcinolone Acet 0.1% CRM 1 appl TP BID PRN 03/26/15 12/06/17 [Kenalog] glipiZIDE [Glipizide] 20 mg PO DAILY 03/26/15 12/06/17 Oxygen 3 ml .ROUTE AD 11/10/15 12/06/17 Nitroglycerin [Nitrostat] 0.4 mg SL AD PRN 09/25/16 12/06/17 [place]-3/Dha/Epa/Fish Oil [Fish Oil 1,000 mg PO DAILY 09/25/16 12/06/17 1,000 mg Softgel] SitaGLIPtin [Januvia] 100 mg PO DAILY 03/26/17 12/06/17 Cetirizine HCl [Zyrtec] 10 mg PO DAILY 07/30/17 12/06/17 Fluticasone Propionate Nasal 16 gm NS DAILY 07/30/17 12/06/17 [Flonase] Isosorbide MONOnitrate (24 HR) 60 mg PO DAILY 12/06/17 12/06/17 [Imdur] Lisinopril [Zestril] 10 mg PO DAILY 12/06/17 12/06/17 Tamsulosin [Flomax] 0.4 mg PO BID 12/06/17 12/06/17 Allergies Allergy/AdvReac Type Severity Reaction Status Date / Time codeine AdvReac Nausea Verified 10/30/17 09:00 morphine AdvReac Nausea Verified 10/30/17 09:00 All systems ED: reviewed and negative except as stated. Review of Systems: As Per HPI Constitutional: Denies: fever Cardiovascular: Reports: chest pain Respiratory: Reports: dyspnea. Denies: cough, wheezes Gastrointestinal: Denies: abdominal pain, nausea, vomiting Musculoskeletal: Reports: neck pain Integumentary: Denies: rash Neurological: Reports: paresthesias. Denies: headache Past Medical History - Past Medical History Medical history: Reports: cancer, cirrhosis, CHF, COPD, coronary artery disease , diabetes, hypertension, myocardial infarction, other Surgical history: Reports: appendectomy, orthopedic, other Psychiatric history: Reports: no psych history - Social History Smoking Status: Former smoker Smokeless Tobacco Status: No Alcohol use: Reports: none Drug use: Reports: none Physical Exam - General Limitations: no limitations General appearance: alert, in no apparent distress - Head Head exam: atraumatic, normocephalic - Eye Eye exam: Present: EOMI. Absent: scleral icterus, conjunctival injection - ENT ENT exam: normal oropharynx, mucous membranes moist - Neck Neck exam: Present: trachea midline - Chest Chest inspection: Present: symmetric chest wall rise - Respiratory Respiratory exam: Present: normal lung sounds bilaterally. Absent: respiratory distress - Cardiovascular Cardiovascular exam: Present: normal rhythm, tachycardia - Abdominal Exam Abdominal exam: Present: soft, Non-Tender. Absent: guarding, rebound, rigidity - Extremities Exam Extremities exam: Present: full ROM, pedal edema (2+ bilaterally) - Back Exam Back exam: Present: normal inspection - Neurological Exam Neurological exam: Present: alert, oriented X3, CN II-XII intact - Psychiatric Psychiatric exam: Present: normal affect, normal mood - Skin Skin exam: Present: warm, dry, intact Course Vital Signs Temperature 98.2 F 12/06/17 15:24 Pulse Rate 103 12/06/17 15:24 Respiratory Rate 21 12/06/17 15:24 Blood Pressure 123/62 12/06/17 15:24 O2 Sat by Pulse Oximetry 91 12/06/17 15:24 Temperature 98.2 F 12/06/17 15:24 Pulse Rate 91 12/06/17 20:20 Respiratory Rate 20 12/06/17 20:20 Blood Pressure 133/73 12/06/17 20:20 O2 Sat by Pulse Oximetry 94 12/06/17 20:20 Oxygen Delivery Oxygen Delivery Nasal Cannula Medical Decision Making - MDM Narrative Medical decision making narrative: 72-year-old male presents emergency department with concern for chest pain, neck pain, numbness and tingling in his right upper extremity. EKG was obtained and did not reveal any evidence of ischemia. Patient was given nitroglycerin here had some resolution of his chest pain, but still having persistent pain in the right side of his neck and right upper extremity. Patient was tachycardic. We obtained CTA of the chest and neck. CTA of the neck does not reveal any abnormalities. CTA of the chest was not an adequate study. Did reveal evidence of chronic granulomatous changes as well as interstitial lung disease. We will obtain ventilation/perfusion scan. Patient was given fentanyl and Percocet and stated that this relieved his neck pain as well as his right arm pain. The VQ scan did not reveal any evidence of pulmonary embolus. Patient was admitted other evaluation. Repeat four-hour troponin was ordered. Results are pending. Hospitalist agreed to accept admission. Patient hemodynamically stable and not in any acute distress. Vital Signs Temperature 98.2 F 12/06/17 15:24 Pulse Rate 103 12/06/17 15:24 Respiratory Rate 21 12/06/17 15:24 Blood Pressure 123/62 12/06/17 15:24 O2 Sat by Pulse Oximetry 91 12/06/17 15:24 Temperature 98.2 F 12/06/17 15:24 Pulse Rate 91 12/06/17 20:20 Respiratory Rate 20 12/06/17 20:20 Blood Pressure 133/73 12/06/17 20:20 O2 Sat by Pulse Oximetry 94 12/06/17 20:20 Oxygen Delivery Oxygen Delivery Nasal Cannula Chest X-Ray 12/06/17 15:29 IMPRESSION: Diffuse, bilateral coarse interstitial opacities are similar to prior and likely related to chronic lung disease. No new focal consolidation. D/ / 12/06/2017 16:32:45 Ngoc Nielsen MD / [facility] Interpreting Provider: Ngoc Nielsen MD Chest CTA 12/06/17 15:58 IMPRESSION: Nondiagnostic exam in the evaluation for PE. Evidence of interstitial lung and chronic granulomatous disease. Cirrhotic liver with splenomegaly. RECOMMENDATIONS: V/Q scan could be attempted for further evaluation. D/ / Segundo sEtrella MD / Segundo Estrella MD Interpreting Provider: Segundo Estrella MD Neck CTA 12/06/17 15:58 IMPRESSION: Mild, less than 50%, stenosis of the internal carotid arteries by NASCET criteria. No flow-limiting stenosis of the vertebral arteries. No dissection or arterial injury. D/ / 12/06/2017 17:51:10 Ngoc Nielsen MD / [facility] Interpreting Provider: Ngoc Nielsen MD Pulmonary Perfusion Imaging 12/06/17 17:55 IMPRESSION: 1. Low probability for pulmonary embolism. 2. Interstitial fibrotic changes do not meet criteria for usual interstitial pneumonitis pattern. This could be result of an underlying autoimmune disease such is scleroderma given esophageal dilation. D/ / Alexander Warner MD / Alexander Warner MD Interpreting Provider: Alexander Warner MD - Lab Data Result diagrams: 12/06/17 16:01 12/06/17 16:01 Lab Results 12/06/17 12/06/17 12/06/17 Range/Units 16:00 16:01 16:01 WBC 6.4 (4.3-11.1) K/mcL RBC 4.28 (4.19-5.50) M/mcL Hgb 13.4 (12.9-16.9) g/dL Hct 40.5 (37.5-50.1) % MCV 94.6 (83.0-100.0) fL MCH 31.3 (28.0-33.3) pg MCHC 33.1 (31.6-35.5) g/dL RDW 14.2 (11.5-14.5) % Plt Count 137 L (140-400) K/mcL MPV 10.7 (9.4-12.4) fL Immature Gran % 0.2 (0-4) % Seg Neutrophils % 67.5 % Lymphocytes % 15.7 % Monocytes % 13.1 % Eosinophils % 3.0 % Basophils % 0.5 % Neutrophils # 4.3 (1.6-8.9) K/mcL Lymphocytes # 1.0 (0.6-4.6) K/mcL Monocytes # 0.8 (0.0-1.3) K/mcL Eosinophils # 0.2 (0.0-0.6) K/mcL Basophils # 0.0 (0.0-0.2) K/mcL PT 12.3 H (9.4-12.1) Seconds INR 1.1 APTT 34.5 (26.0-36.0) Seconds D-Dimer 1291 H (0-500) ng/mLFEU Sodium (136-145) mEq/L Potassium (3.5-5.1) mEq/L Chloride (98-107) mEq/L Carbon Dioxide (23-29) mEq/L BUN (8-23) mg/dL Creatinine (0.70-1.30) mg/dL Est GFR ( Amer) (> 60) Est GFR (Non-Af Amer) (> 60) BUN/Creatinine Ratio (6-26) Glucose (70-105) mg/dL Calculated Osmolality (280-300) Calcium (8.6-10.3) mg/dL Troponin I (< 0.04) ng/mL 12/06/17 Range/Units 16:01 WBC (4.3-11.1) K/mcL RBC (4.19-5.50) M/mcL Hgb (12.9-16.9) g/dL Hct (37.5-50.1) % MCV (83.0-100.0) fL MCH (28.0-33.3) pg MCHC (31.6-35.5) g/dL RDW (11.5-14.5) % Plt Count (140-400) K/mcL MPV (9.4-12.4) fL Immature Gran % (0-4) % Seg Neutrophils % % Lymphocytes % % Monocytes % % Eosinophils % % Basophils % % Neutrophils # (1.6-8.9) K/mcL Lymphocytes # (0.6-4.6) K/mcL Monocytes # (0.0-1.3) K/mcL Eosinophils # (0.0-0.6) K/mcL Basophils # (0.0-0.2) K/mcL PT (9.4-12.1) Seconds INR APTT (26.0-36.0) Seconds D-Dimer (0-500) ng/mLFEU Sodium 136 (136-145) mEq/L Potassium 4.2 (3.5-5.1) mEq/L Chloride 104 (98-107) mEq/L Carbon Dioxide 26 (23-29) mEq/L BUN 7 L (8-23) mg/dL Creatinine 0.77 (0.70-1.30) mg/dL Est GFR ( Amer) > 60 (> 60) Est GFR (Non-Af Amer) > 60 (> 60) BUN/Creatinine Ratio 9 (6-26) Glucose 203 H (70-105) mg/dL Calculated Osmolality 286 (280-300) Calcium 9.2 (8.6-10.3) mg/dL Troponin I < 0.03 (< 0.04) ng/mL - EKG Data EKG #1 EKG attestation: Yes I reviewed and interpreted this EKG. EKG results narrative: 15:18 Ventricular rate 109 bpm, ME interval 162 ms, QRS duration 145 ms, QT 362 ms, QTC 426 ms, normal axis. Sinus tachycardia with ventricular rate of 109 bpm. Right bundle-branch block. There are no new ST changes that are ischemic in comparison with a previous electrocardiogram performed on 10/09/2017.
[2017-12-06] MEDS ORDERED: Aspirin 81 MG TAB.CHEW PO ONE (15:51)
[2017-12-06] MEDS ORDERED: Isovue-370 500 ML INFUS..BTL IV ONE (15:58)
--- NOTE | 2017-12-06 15:59 | Emergency Department Note ---
START Narrative - START START: I examined this patient and my medical decision-making was reviewed with the Resident Physician. I agree with the documented findings, disposition and treatment plan as described except to the extent set forth below. 72-year-old male presented to the emergency room for chest pain and right-sided neck pain. States his pain got worse in the right side of his neck earlier today. Was sent to the ER for evaluation. He does have a little bit of chest discomfort. He denies any left sided neck pain. No left arm pain. His right arm he does have some pain and numbness and tingling. Concerns for carotid issue. We will do a CTA of the neck as well as the chest and a cardiac workup. Chest x-ray. EKG was nondiagnostic. Vitals are stable but he is slightly tachycardic and hypoxic. We will do a chest x-ray as well.
[2017-12-06] MEDS: Nitroglycerin 0.4 MG TAB.SUBL SL PRN ×2 (16:21→16:55)
[2017-12-06 16:28] LABS: INR 1.1; Prothrombin Time 12.3 Seconds (9.4-12.1)
[2017-12-06 16:30] LABS: Activated Partial Thrombo Time 34.5 Seconds (26.0-36.0)
[2017-12-06 16:39] LABS: BUN/Creatinine Ratio 9 (6-26); Blood Urea Nitrogen 7 mg/dL (8-23); Calcium 9.2 mg/dL (8.6-10.3); Carbon Dioxide 26 mEq/L (23-29); Chloride 104 mEq/L (98-107); Glucose 203 mg/dL (70-105); Osmolality,Calculated 286 (280-300); Potassium 4.2 mEq/L (3.5-5.1); Sodium 136 mEq/L (136-145); Troponin I < 0.03 ng/mL (< 0.04); eGFR For African Americans > 60 (> 60); eGFR For Non-African Americans > 60 (> 60)
[2017-12-06 16:43] LABS: Basophils % 0.5 %; Eosinophils # 0.2 K/mcL (0.0-0.6); Hematocrit 40.5 % (37.5-50.1); Hemoglobin 13.4 g/dL (12.9-16.9); Immature Granulocytes % 0.2 % (0-4); Lymphocytes % 15.7 %; Mean Corpuscular HGB Conc 33.1 g/dL (31.6-35.5); Mean Corpuscular Hemoglobin 31.3 pg (28.0-33.3); Mean Corpuscular Volume 94.6 fL (83.0-100.0); Mean Platelet Volume 10.7 fL (9.4-12.4); Monocytes # 0.8 K/mcL (0.0-1.3); Monocytes % 13.1 %; Neutrophils # 4.3 K/mcL (1.6-8.9); Platelet Count 137 K/mcL (140-400); Red Blood Count 4.28 M/mcL (4.19-5.50); Red Cell Distribution Width 14.2 % (11.5-14.5); Segmented Neutrophils % 67.5 %
[2017-12-06] MEDS ORDERED: *HR* Heparin 5,000 UNIT/ML VIAL IVP PRN ×2 (18:24)
[2017-12-06] MEDS ORDERED: *HR* Heparin 5,000 UNIT/ML VIAL IVP ONE (18:24)
[2017-12-06] MEDS ORDERED: Heparin 25,000 UNIT/500 ML D5W 25,000 UNIT/500 ML BAG IVC SCH (18:30)
[2017-12-06] MEDS ORDERED: *HR* FentaNYL (PF) 100 MCG/2 ML VIAL IVP ONE (18:38)
[2017-12-06] MEDS ORDERED: *HR* OxyCODONE/APAP 5/325 TABLET PO ONE (18:38)
[2017-12-06] MEDS ORDERED: *HR* Enoxaparin 150 MG/ML SYRINGE SQ SCH (18:45)
[2017-12-06] MEDS ORDERED: 0.9 % Sodium Chloride 1,000 ML IVC ONE (20:28)
[2017-12-06] MEDS ORDERED: Nitroglycerin 0.4 MG TAB.SUBL SL PRN (20:52)
[2017-12-06] MEDS ORDERED: traMADol 50 MG TABLET PO PRN (20:52)
[2017-12-06] MEDS ORDERED: Dextrose Gel 15 GM/37.5 ML TUBE PO PRN ×4 (20:53→20:54)
[2017-12-06] MEDS ORDERED: *HR* Dextrose 50 % in Water (Syg) 50 ML SYRINGE IVP PRN ×2 (20:53→20:54)
[2017-12-06] MEDS ORDERED: D5% in Water 1,000 ML IVC PRN ×2 (20:53→20:54)
[2017-12-06] MEDS ORDERED: Naloxone 0.4 MG/ML INJ IVP PRN (20:54)
[2017-12-06] MEDS ORDERED: Insulin LISPRO 300 UNITS/3 ML VIAL SQ SCH (21:00)
--- NOTE | 2017-12-06 21:01 | Internal Med History&Physical ---
Date of Encounter: 12/06/17 Time of Encounter: 20:56 Internal Medicine - H&P: HPI Chief complaint: chest tightness History of present illness: Mr. Oneal is a 72 year old male with a history of CAD, CHF, KELLY on CPAP at night , DMII on oral agents who presents for Chest pain eval Patient was in the hospital electively for a carotid ultrasound as ordered by his PCP in the outpatient after routine eval in the clinic 2 weeks ago approx. While in the hospital he developed chest tightness, sternal in location, associated with shortness of breath, radiated to the right shoulder and neck, pain was relieved with nitroglycerin. On review he notes that his chest pain is partially reproducible on palpation but not fully. Patient follows with Dr. Schafer of cardiology as an outpatient Of note, patient saw PCP 2 weeks ago as routine visit where he complained of chronic dizziness for a couple years associated with new onset of right shoulder and neck pain in the past 2-3 weeks. While undergoing range of motion examination of the head in the office patient was reported to feel dizzy and associated blurriness of the eyes.. Because of this his primary care doctor ordered an elective carotid ultrasound for further evaluation. EKG personally reviewed with rate of 109, sinus tachycardia, right bundle branch block that is unchanged since 10/09/17 NM/NM pul vent and perfuse IMPRESSION: 1. Low probability for pulmonary embolism. 2. Interstitial fibrotic changes do not meet criteria for usual interstitial pneumonitis pattern. This could be result of an underlying autoimmune disease such is scleroderma given esophageal dilation. CT/CT angio neck IMPRESSION: Mild, less than 50%, stenosis of the internal carotid arteries by NASCET criteria. No flow-limiting stenosis of the vertebral arteries. No dissection or arterial injury. CT/CT angio chest IMPRESSION: Nondiagnostic exam in the evaluation for PE. Evidence of interstitial lung and chronic granulomatous disease. Cirrhotic liver with splenomegaly. RECOMMENDATIONS: V/Q scan could be attempted for further evaluation. XR/XR chest 1V portable /IMPRESSION: Diffuse, bilateral coarse interstitial opacities are similar to prior and likely related to chronic lung disease. No new focal consolidation. Past Med Surg Social Fam HX - Past Medical History Medical history: cancer, cirrhosis, CHF, COPD, coronary artery disease, diabetes , hypertension, myocardial infarction, other Additional medical history: leukemia Psychiatric history: no psych history - Past Surgical History Surgical History: appendectomy, orthopedic, other Additional surgical history: carpal tunnel. rotator cuff - Social History Smoking Status: Former smoker Smokeless Tobacco Status: No Alcohol use: none Drug use: none - Family History Father Adopted: No Family Member Ethnicity: Non- Hx Family Cardiac Disorders: No Hx Family Respiratory Disorders: No Hx Family Cancer: Yes (lung cancer) Hx Family GI Disorders: No Hx Family Endocrine Disorder: No Hx Family Neuromuscular Disorders: No Hx Family Neurologic Disorders: No Hx Family HEENT Disorders: No Hx Family Autoimmune Disorders: No Internal Medicine - H&P: Meds Aspirin Enteric Coated [Aspirin EC] 81 mg PO DAILY 03/26/15 [History] Cholecalciferol (Vitamin D3) [Vitamin D3] 2,000 unit PO DAILY 03/26/15 [History] Furosemide 40 mg PO DAILY PRN 03/26/15 [History] Metformin [Glucophage] 1,000 mg PO DAILY 03/26/15 [History] Tramadol HCl 50 mg PO Q6HR PRN 03/26/15 [History] Triamcinolone Acet 0.1% CRM [Kenalog] 1 appl TP BID PRN 03/26/15 [History] glipiZIDE [Glipizide] 20 mg PO DAILY 03/26/15 [History] Oxygen 3 ml .ROUTE AD 11/10/15 [History] Nitroglycerin [Nitrostat] 0.4 mg SL AD PRN 09/25/16 [History] [place]-3/Dha/Epa/Fish Oil [Fish Oil 1,000 mg Softgel] 1,000 mg PO DAILY 09/25/16 [History] SitaGLIPtin [Januvia] 100 mg PO DAILY 03/26/17 [History] Cetirizine HCl [Zyrtec] 10 mg PO DAILY 07/30/17 [History] Fluticasone Propionate Nasal [Flonase] 16 gm NS DAILY 07/30/17 [History] Isosorbide MONOnitrate (24 HR) [Imdur] 60 mg PO DAILY 12/06/17 [History] Lisinopril [Zestril] 10 mg PO DAILY 12/06/17 [History] Tamsulosin [Flomax] 0.4 mg PO BID 12/06/17 [History] 3 Allergy/AdvReac Type Severity Reaction Status Date / Time codeine AdvReac Nausea Verified 10/30/17 09:00 morphine AdvReac Nausea Verified 10/30/17 09:00 All Systems PM: A 10-system review of systems was performed and is negative for pertinent findings except as documented above in the HPI. Review of systems: ROS 14 point review of systems reviewed as best as possible given presentation. Pertinent positive or negative as per HPI or otherwise reviewed as negative - Constitutional Vitals: Temp Pulse Resp BP Pulse Ox 98.2 F 88 20 117/57 95 12/06/17 15:24 12/06/17 20:54 12/06/17 20:54 12/06/17 20:54 12/06/17 20:54 Exam: General - AAO x 3 Psych - Appropriate affect/speech. No agitation Eyes - INDIGO. Eye lids intact. No scleral icterus Neuro - No gross peripheral or central neuro deficits on inspection Heart - Sinus. RRR. S1 and S2 present. No added HS/murmurs appreciated. No elevated JVD appreciated. Lung - Adequate air entry b/l, No crackles/wheezes appreciated GI - Soft, non-tender. No hepatosplenomegaly/ascites. BS+ - No CVA/suprapubic tenderness or palpable bladder distension Skin - Intact. No rash/petechiae/ecchymosis. Warm extremities. bilateral lower extremity edema MSK -chest pain is partially reproducible with palpation sternal location Internal Med - H&P Results - Labs CBC & Chem 7: 12/06/17 16:01 12/06/17 16:01 Labs: Short CBC 12/06/17 Range/Units 16:01 WBC 6.4 (4.3-11.1) K/mcL Hgb 13.4 (12.9-16.9) g/dL Hct 40.5 (37.5-50.1) % Plt Count 137 L (140-400) K/mcL Neutrophils # 4.3 (1.6-8.9) K/mcL BMP 12/06/17 16:01 Sodium 136 Potassium 4.2 Chloride 104 Carbon Dioxide 26 BUN 7 L Creatinine 0.77 Glucose 203 H Calcium 9.2 Cardiac Enzymes 12/06/17 12/06/17 Range/Units 16:01 20:14 Troponin I < 0.03 < 0.03 (< 0.04) ng/mL - Impressions ITS Impressions Chest X-Ray 12/06/17 15:29 IMPRESSION: Diffuse, bilateral coarse interstitial opacities are similar to prior and likely related to chronic lung disease. No new focal consolidation. D/ / 12/06/2017 16:32:45 Ngoc Nielsen MD / [facility] Interpreting Provider: Ngoc Nielsen MD Chest CTA 12/06/17 15:58 IMPRESSION: Nondiagnostic exam in the evaluation for PE. Evidence of interstitial lung and chronic granulomatous disease. Cirrhotic liver with splenomegaly. RECOMMENDATIONS: V/Q scan could be attempted for further evaluation. D/ / Segundo Estrella MD / Segundo Estrella MD Interpreting Provider: Segundo Estrella MD Neck CTA 12/06/17 15:58 IMPRESSION: Mild, less than 50%, stenosis of the internal carotid arteries by NASCET criteria. No flow-limiting stenosis of the vertebral arteries. No dissection or arterial injury. D/ / 12/06/2017 17:51:10 Ngoc Nielsen MD / [facility] Interpreting Provider: Ngoc Nielsen MD Pulmonary Perfusion Imaging 12/06/17 17:55 IMPRESSION: 1. Low probability for pulmonary embolism. 2. Interstitial fibrotic changes do not meet criteria for usual interstitial pneumonitis pattern. This could be result of an underlying autoimmune disease such is scleroderma given esophageal dilation. D/ / Alexander Warner MD / Alexander Warner MD Interpreting Provider: Alexander Warner MD - Assessment and plan (1) Chest pain Current Visit: Yes Status: Acute Assessment and plan: trend trop tele, pulse ox discussed based on trop trend and overnight clinical course, may benefit from outpatient vs. inpatient stress testing. If trop positive, will seek inpatient cardiac eval. will empirically placed NPO after MN for now - in case inpatient stress is felt to be necessary Qualifiers: Chest pain type: unspecified Qualified Code(s): R07.9 - Chest pain, unspecified (2) Congestive heart failure Current Visit: No Status: Acute Assessment and plan: compensated - on prn lasix at home - held due to contrast with CTA - resume at home Qualifiers: Qualified Code(s): I50.33 - Acute on chronic diastolic (congestive) heart failure (3) Coronary artery disease Current Visit: No Status: Chronic Assessment and plan: denies hx of stent, medically managed outpatient with Dr Schafer Qualifiers: Coronary Disease-Associated Artery/Lesion type: [place] artery [place] vs. transplanted heart: [place] heart Associated angina: with stable angina Qualified Code(s): I25.118 - Atherosclerotic heart disease of [place] coronary artery with other forms of angina pectoris (4) Hypertension Current Visit: No Status: Chronic Assessment and plan: on med Qualifiers: Hypertension type: essential hypertension Qualified Code(s): I10 - Essential (primary) hypertension (5) Morbid obesity with BMI of 45.0-49.9, adult Current Visit: No Status: Chronic Assessment and plan: education (6) Type 2 diabetes mellitus Current Visit: No Status: Chronic Assessment and plan: hold metformin/sulfonylurea, continue rest of oral agent, ISS added Qualifiers: Diabetes mellitus shelter insulin use: without shelter use Diabetes mellitus complication status: with unspecified complications Qualified Code(s) : E11.8 - Type 2 diabetes mellitus with unspecified complications (7) Cirrhosis Current Visit: No Status: Acute Assessment and plan: probably WREN related. compensated Qualifiers: Hepatic cirrhosis type: unspecified hepatic cirrhosis Ascites presence: without ascites Qualified Code(s): K74.60 - Unspecified cirrhosis of liver (8) CML (chronic myelocytic leukemia) Current Visit: No Status: Chronic Assessment and plan: follows with Dr See. Was on TKI tasigna for 5 years, now taken off therapy for 1 month - surveillance - Time Spent With Patient Total time spent is greater than 50% in coordination of care (as documented) at patient's floor/unit and/or counseling patient:
[2017-12-07 06:39] VITALS: BP 109/56
[2017-12-07] MEDS ORDERED: Insulin LISPRO 300 UNITS/3 ML VIAL SQ SCH (07:30)
[2017-12-07] MEDS ORDERED: *HR* GlipiZIDE XL (24 HR) 10 MG TABLET PO SCH (08:00)
[2017-12-07] MEDS ORDERED: Cholecalciferol (D-3) 1,000 UNIT TABLET PO SCH (09:00)
[2017-12-07] MEDS ORDERED: Isosorbide MONOnitrate (24 HR) 60 MG TAB.ER.24H PO SCH (09:00)
[2017-12-07] MEDS ORDERED: Aspirin Enteric Coated 81 MG Tablet PO SCH (09:00)
[2017-12-07] MEDS ORDERED: Loratadine 10 MG TABLET PO SCH (09:00)
[2017-12-07] MEDS ORDERED: *HR* SitaGLIPtin 100 MG TABLET PO SCH (09:00)
--- NOTE | 2017-12-07 10:29 | Discharge Summary ---
- NOTES TO OUTPATIENT PROVIDER Notes to Outpatient Provider: Please f/u with PCP within 1-week of discharge. Admitted for CP r/o, patient reports that he never had chest pain but right shoulder and neck pain. Worked up d/t prior hx. Troponins negative x3. He was offered inpatient stress test but declined. He has been instructed to f/u with cardiology within 1-2 weeks of dc to schedule outpatient stress. Date of Encounter: 12/07/17 Time of Encounter: 10:24 - Discharge Diagnosis (1) Chest pain Priority: Secondary Status: Acute Assessment and Plan: Patient presented with patient and neck and shoulder pain. Denies any chest pain. ECG reviewed by me and found to be sinus rhythm, no ST elevation, depression or signs of ischemia Unclear as to whether or not neck and shoulder pain cardiac cause. Pain reproducible on examination with range of motion exercises of right upper extremity and right neck Troponins negative 3, no events on telemetry noted overnight for review Patient continues to be chest pain-free and hemodynamically stable He was offered further workup including inpatient stress test; does not want inpatient stress test and wishes to discharge Patient has been instructed to follow-up with PCP within 1 week of discharge, additionally, has been instructed to follow-up with cardiology in 1-2 weeks for outpatient stress test His been instructed to return to the ED showed chest pain, shoulder and neck pain returned and/or worsen Qualifiers: Chest pain type: unspecified Qualified Code(s): R07.9 - Chest pain, unspecified (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 Was on TKI tasigna for 5 years, now taken off therapy for 1 month - Continue surveillance per Dr. Melara (3) Coronary artery disease Priority: Secondary Status: Chronic Assessment and Plan: denies hx of stent, medically managed outpatient with Dr Schafer, continue ASA Imdur and ADAM Qualifiers: Coronary Disease-Associated Artery/Lesion type: [place] artery [place] vs. transplanted heart: [place] heart Associated angina: with stable angina Qualified Code(s): I25.118 - Atherosclerotic heart disease of [place] coronary artery with other forms of angina pectoris (4) Type 2 diabetes mellitus Priority: Secondary Status: Chronic Assessment and Plan: Serial type 2 diabetes, poorly controlled with Hgb A1c 7.8 Continue oral hypoglycemic agents Follow-up with PCP to establish tighter control Qualifiers: Diabetes mellitus retirement insulin use: without vermin exterminator use Diabetes mellitus complication status: with unspecified complications Qualified Code(s) : E11.8 - Type 2 diabetes mellitus with unspecified complications (5) Cirrhosis Priority: Secondary Status: Acute Assessment and Plan: probably WREN related. compensated Qualifiers: Hepatic cirrhosis type: unspecified hepatic cirrhosis Ascites presence: without ascites Qualified Code(s): K74.60 - Unspecified cirrhosis of liver (6) Congestive heart failure Priority: Secondary Status: Acute Assessment and Plan: compensated - on prn lasix at home , continue at discharge Qualifiers: Qualified Code(s): I50.33 - Acute on chronic diastolic (congestive) heart failure (7) Morbid obesity with BMI of 45.0-49.9, adult Priority: Secondary Status: Chronic Assessment and Plan: education or guarding lifestyle modifications and weight loss provided (8) Hypertension Priority: Secondary Status: Chronic Assessment and Plan: History of hypertension. Blood pressure stable throughout stay. Continue home medications at discharge Qualifiers: Hypertension type: essential hypertension Qualified Code(s): I10 - Essential (primary) hypertension Hospital course: Mr. Oneal is a 72 year old male - Time Spent with Patient Total time spent providing and/or coordinating discharge services: - Discharge Medications Home Medications: Aspirin Enteric Coated [Aspirin EC] 81 mg PO DAILY 03/26/15 [History] Cholecalciferol (Vitamin D3) [Vitamin D3] 2,000 unit PO DAILY 03/26/15 [History] Furosemide 40 mg PO DAILY PRN 03/26/15 [History] Metformin [Glucophage] 1,000 mg PO DAILY 03/26/15 [History] Tramadol HCl 50 mg PO Q6HR PRN 03/26/15 [History] Triamcinolone Acet 0.1% CRM [Kenalog] 1 appl TP BID PRN 03/26/15 [History] glipiZIDE [Glipizide] 20 mg PO DAILY 03/26/15 [History] Oxygen 3 ml .ROUTE AD 11/10/15 [History] Nitroglycerin [Nitrostat] 0.4 mg SL AD PRN 09/25/16 [History] [place]-3/Dha/Epa/Fish Oil [Fish Oil 1,000 mg Softgel] 1,000 mg PO DAILY 09/25/16 [History] SitaGLIPtin [Januvia] 100 mg PO DAILY 03/26/17 [History] Cetirizine HCl [Zyrtec] 10 mg PO DAILY 07/30/17 [History] Fluticasone Propionate Nasal [Flonase] 16 gm NS DAILY 07/30/17 [History] Isosorbide MONOnitrate (24 HR) [Imdur] 60 mg PO DAILY 12/06/17 [History] Lisinopril [Zestril] 10 mg PO DAILY 12/06/17 [History] Tamsulosin [Flomax] 0.4 mg PO BID 12/06/17 [History] Allergies/Adverse Reactions: 3 Allergy/AdvReac Type Severity Reaction Status Date / Time codeine AdvReac Nausea Verified 10/30/17 09:00 morphine AdvReac Nausea Verified 10/30/17 09:00 Date of admission: 12/06/17 21:06 Primary care physician: Vicente Pederson DO Discharging clinician: Apollo Emanuel Anticipated date of discharge: 12/07/17 - Constitutional Vitals: Temp Pulse Resp BP Pulse Ox 98.1 F 68 17 109/56 95 12/07/17 06:38 12/07/17 06:38 12/07/17 06:38 12/07/17 06:38 12/07/17 06:38 - Patient Status Disposition: Home, Self-Care Condition: Fair Overall status at discharge: patient is back to baseline - Discharge Instructions Instructions: Chest Pain (DC), Diabetes Mellitus Type 2 in Adults (DC) Follow Up With: Isaiah Briceno MD [Partnered Physician] - 12/11/17 2:00 pm Vicente Pederson DO [Primary Care Provider] - 12/14/17 1:00 pm Additional Instructions: Follow-up appointments: If there is not an appointment listed below, please call your physician and schedule a follow-up appointment. If you have congestive heart failure and your symptoms return, make an appointment with your physician. Medication List: Carry an up to date list of medications you are taking at all time. We have given you an updated medication list including any new medications that you have been prescribed. Please provide that list to your primary provider Symptoms: If your condition changes or you experience any of the following symptoms, notify your physician immediately: Unusual or worsening pain, fever, persistent nausea and vomiting, bleeding, increase in swelling (especially in your legs), sudden weight gain, extreme dizziness, chest pain, increased drainage or redness from a wound or incision. Go to the emergency department if you experience a problem with breathing. Weights: If you have a history of swelling or shortness of breath, weigh yourself daily and notify your physician if you have a weight gain of two or more pounds in one day or 5 or more pounds in a week. If you experience any of the warning signs for stroke: Sudden numbness or weakness of the face, arm or leg; especially on one side of the body, sudden confusion, trouble speaking or understanding, sudden trouble seeing in one or both eyes, sudden trouble walking, dizziness, loss of balance or coordination, sudden sever headache with no cause; Call 911 or go to the emergency room. Stroke is a medical emergency. Some risk factors for stroke: Age, cigarette smoking, diabetes, excessive alcohol consumption, family history , high blood pressure, overweight, physical inactivity, prior stroke, heart attack, diagnosis of carotid artery stenosis or other artery disease. If you smoke, STOP: Smoking or tobacco use significantly increases your risk of heart and lung disease. Your chance of disease greatly increases if you continue to smoke. For more information, call the [place] tobacco quit line for smoking cessation QUIT-NOW ( ) - Diet and Activity Activity: resume usual activities as tolerated Diet: advance to your usual diet
--- NOTE | 2017-12-09 11:05 | Electrocardiograph Report ---
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
== END 2017-12-07 12:11 | disposition home or self-care (01) ==
LOC: EMEROO 15:05 → 3BNU 15:05
PROVIDERS: ADMIT Internal Medicine Hematology & Oncology; ATTEND Internal Medicine Hematology & Oncology